=== PATIENT | male | born 1935 | race Caucasian/White ===

== ENCOUNTER → 2020-01-23 | Day surgery (SDC) | payer MEDICARE ==
[2020-01-20 09:30] LABS: BASOPHILS % 0.6 % (0.0-1.0); EOSINOPHILS # (AUTO) 0.2 (0.0-0.4); EOSINOPHILS % 2.4 % (0.0-6.0); HEMOGLOBIN 12.8 g/dL (14.0-18.0); LYMPHOCYTES # (AUTO) 1.2 (1.0-3.2); MEAN CORPUSCULAR HEMOGLOBIN 31.5 pg (28-32); MEAN CORPUSCULAR HGB CONC 34.6 g/dL (31-35); MEAN CORPUSCULAR VOLUME 91.1 fL (81-99); MONOCYTES # (AUTO) 0.5 (0.2-0.8); MONOCYTES % 7.5 % (4.4-11.3); NEUTROPHILS # (AUTO) 5.3 (2.1-6.9); NEUTROPHILS % 72.9 % (38.7-80.0); PLATELET COUNT 189 x10e3/uL (140-360); RED BLOOD COUNT 4.06 x10e6/uL (4.3-5.7); RED CELL DISTRIBUTION WIDTH 12.7 % (11.7-14.4)
[2020-01-20 09:56] LABS: ANION GAP 11.1 mmol/L (8-16); BLOOD UREA NITROGEN 27 mg/dL (7-26); BUN/CREATININE RATIO 24 (6-25); CALCIUM 9.6 mg/dL (8.4-10.2); CARBON DIOXIDE 26 mmol/L (22-29); CHLORIDE 104 mmol/L (98-107); CREATININE, SERUM 1.14 mg/dL (0.72-1.25); EST GLOMERULAR FILTRATION RATE > 60 ML/MIN (60-); GLUCOSE 149 mg/dL (74-118); POTASSIUM 4.1 mmol/L (3.5-5.1); SODIUM 137 mmol/L (136-145)
[~2020-01-23] MED LIST: AMLODIPINE BESY10 MG PO; ASPIRIN81 MG PO; B&O 60MG R/S 60 MG SUPP PR ONE; CEFTRIAXONE SOD 1 GM/NS 50 ML 50 ML IV ONE; CITRACAL + BON1 EACH PO; FINASTERIDE5 MG PO; FLOMAX0.4 MG PO; FUROSEMIDE40 MG PO; GLIMEPIRIDE2 MG PO; GLYCOPYRROLATE INJ 0.2 MG/ML VIAL ONE; HYDRALAZINE HCL25 MG PO; HYDROCHLOROTHIA25 MG PO; IOPAMIDOL 300MG/ML 50ML INFUS..BTL IV ONE; LIDOCAINE HCL 2% LOCAL INJ 5 ML SDV VIAL INJ ONE; LIPITOR10 MG PO; LOSARTAN POTASS25 MG PO; LUPRON DEPOT45 MG INJ; METOPROLOL SUCC25 MG PO; MYRBETRIQ25 MG PO; OLMESARTAN PO; OMEPRAZOLE40 MG PO; ONDANSETRON HCL INJ 2MG/ML 2ML 2 MG/ML VIAL ONE; OZEMPIC0.25 MG/0. SC; PANTOPRAZOLE SO40 MG PO; PLAVIX75 MG PO; PROPOFOL IV EMULSION 10 MG/ML 20 ML VIAL ONE; RENA-VITE TABL0.8 MG PO; SEVOFLURANE INHAL SOLN 250 ML PEN BTL ONE; TRADJENTA5 MG PO; TRICOR145 MG PO; VIT B12 PO; VIT D PO
[2020-01-23] MEDS: GENTAMICIN 80MG/NS 100 ML 200 ML IV ONE (12:38)
[2020-01-23 15:25] VITALS: BP 168/79
== END | disposition home or self-care (01) ==
LOC: OR 10:49
PROVIDERS: ATTEND Urology
DX: N40.1 Benign prostatic hyperplasia with lower urinary tract symptoms (principal); C61 Malignant neoplasm of prostate; N13.8 Other obstructive and reflux uropathy; R39.14 Feeling of incomplete bladder emptying; Z79.890 Hormone replacement therapy; N32.89 Other specified disorders of bladder; I25.10 Atherosclerotic heart disease of native coronary artery without angina pectoris; I25.2 Old myocardial infarction; E11.9 Type 2 diabetes mellitus without complications; I10 Essential (primary) hypertension; R81 Glycosuria; E66.9 Obesity, unspecified; Z01.810 Encounter for preprocedural cardiovascular examination; Z01.812 Encounter for preprocedural laboratory examination; Z01.818 Encounter for other preprocedural examination; Z20.828 Contact with and (suspected) exposure to other viral communicable diseases; Z79.02 Long term (current) use of antithrombotics/antiplatelets; Z79.82 Long term (current) use of aspirin; Z79.84 Long term (current) use of oral hypoglycemic drugs; Z86.73 Personal history of transient ischemic attack (TIA), and cerebral infarction without residual deficits
CPT/HCPCS: 52005; C9740; 36415; 71046; 74420; 80048; 82948; 85025; 93005; J0696; J1580; J2001; J2405; L8699; U0002

== ENCOUNTER → 2020-12-24 | Day surgery (SDC) | payer MEDICARE, OTHER ==
[2020-12-15 09:54] LABS: BASOPHILS # (AUTO) 0.1 (0.0-0.1); BASOPHILS % 1.1 % (0.0-1.0); EOSINOPHILS # (AUTO) 0.2 (0.0-0.4); EOSINOPHILS % 3.1 % (0.0-6.0); HEMATOCRIT 36.9 % (38.2-49.6); HEMOGLOBIN 12.5 g/dL (14.0-18.0); LYMPHOCYTES # (AUTO) 1.2 (1.0-3.2); LYMPHOCYTES % 15.7 % (18.0-39.1); MEAN CORPUSCULAR HEMOGLOBIN 30.5 pg (28-32); MEAN CORPUSCULAR HGB CONC 33.9 g/dL (31-35); MONOCYTES # (AUTO) 0.5 (0.2-0.8); MONOCYTES % 6.6 % (4.4-11.3); NEUTROPHILS # (AUTO) 5.7 (2.1-6.9); NEUTROPHILS % 72.9 % (38.7-80.0); PLATELET COUNT 214 x10e3/uL (140-360); RED CELL DISTRIBUTION WIDTH 12.5 % (11.7-14.4)
[2020-12-15 10:07] LABS: INR 0.97; PROTHROMBIN TIME 13.3 seconds (11.9-14.5)
[2020-12-15 10:08] LABS: PARTIAL THROMBOPLASTIN TIME 26.2 seconds (23.8-35.5)
[2020-12-15 10:12] LABS: CALCIUM 9.3 mg/dL (8.4-10.2); CREATININE, SERUM 1.27 mg/dL (0.72-1.25)
[~2020-12-24] MED LIST changes: -B&O 60MG R/S 60 MG SUPP PR ONE; +BELLADONNA/OPIUM 30 MG SUPP RC ONE; +BOTULINUM TOXIN TYPE A 100 UNIT VIAL IM ONE; +CEFTRIAXONE 1 GM VIAL ONE; -CEFTRIAXONE SOD 1 GM/NS 50 ML 50 ML IV ONE; -GLYCOPYRROLATE INJ 0.2 MG/ML VIAL ONE; -LIDOCAINE HCL 2% LOCAL INJ 5 ML SDV VIAL INJ ONE; -ONDANSETRON HCL INJ 2MG/ML 2ML 2 MG/ML VIAL ONE; -PROPOFOL IV EMULSION 10 MG/ML 20 ML VIAL ONE; -SEVOFLURANE INHAL SOLN 250 ML PEN BTL ONE; +SODIUM CHLORIDE 0.9% 50ML 50 ML ONE
[2020-12-24 09:25] VITALS: BP 131/75
== END | disposition home or self-care (01) ==
LOC: OR 08:00
PROVIDERS: ATTEND Urology
DX: N32.81 Overactive bladder (principal); C61 Malignant neoplasm of prostate; N40.0 Benign prostatic hyperplasia without lower urinary tract symptoms; E11.22 Type 2 diabetes mellitus with diabetic chronic kidney disease; I12.9 Hypertensive chronic kidney disease with stage 1 through stage 4 chronic kidney disease, or unspecified chronic kidney disease; N18.9 Chronic kidney disease, unspecified; N32.89 Other specified disorders of bladder; I49.3 Ventricular premature depolarization; I10 Essential (primary) hypertension; I25.810 Atherosclerosis of coronary artery bypass graft(s) without angina pectoris; Z01.810 Encounter for preprocedural cardiovascular examination; Z01.812 Encounter for preprocedural laboratory examination; Z01.818 Encounter for other preprocedural examination; Z20.822 Contact with and (suspected) exposure to COVID-19; Z79.02 Long term (current) use of antithrombotics/antiplatelets; Z79.82 Long term (current) use of aspirin; Z79.84 Long term (current) use of oral hypoglycemic drugs; Z79.890 Hormone replacement therapy; Z86.73 Personal history of transient ischemic attack (TIA), and cerebral infarction without residual deficits; Z95.1 Presence of aortocoronary bypass graft
CPT/HCPCS: 36415 ×2; 52005; 52287; 71046; 74420; 80048; 82948; 85025; 85610; 85730; 93005; C1758; J0587; J0696; Q9967; U0002 ×2

== ENCOUNTER → 2021-03-30 | Day surgery (SDC) | payer MEDICARE ==
[2021-03-29 09:19] LABS: BASOPHILS # (AUTO) 0.1 (0.0-0.1); BASOPHILS % 0.9 % (0.0-1.0); EOSINOPHILS # (AUTO) 0.2 (0.0-0.4); EOSINOPHILS % 2.5 % (0.0-6.0); HEMATOCRIT 38.5 % (38.2-49.6); HEMOGLOBIN 12.6 g/dL (14.0-18.0); LYMPHOCYTES # (AUTO) 1.2 (1.0-3.2); LYMPHOCYTES % 17.6 % (18.0-39.1); MEAN CORPUSCULAR HEMOGLOBIN 30.3 pg (28-32); MEAN CORPUSCULAR HGB CONC 32.7 g/dL (31-35); MEAN CORPUSCULAR VOLUME 92.5 fL (81-99); MONOCYTES # (AUTO) 0.5 (0.2-0.8); MONOCYTES % 6.7 % (4.4-11.3); PLATELET COUNT 185 x10e3/uL (140-360); RED BLOOD COUNT 4.16 x10e6/uL (4.3-5.7); RED CELL DISTRIBUTION WIDTH 12.6 % (11.7-14.4)
[2021-03-29 09:36] LABS: ANION GAP 14.1 mmol/L (8-16); CALCIUM 9.9 mg/dL (8.4-10.2); CREATININE, SERUM 1.15 mg/dL (0.72-1.25); POTASSIUM 4.1 mmol/L (3.5-5.1)
[~2021-03-30] MED LIST changes: +DEXAMETHASONE SOD PHOS INJ 4 MG/ML SDV ONE; +EPHEDRINE SULFATE INJ 50 MG/ML VIAL ONE; +FENTANYL CITRATE/PF 100MCG/2 ML INJ ONE; +GLYCOPYRROLATE INJ 0.2 MG/ML VIAL ONE; +LIDOCAINE HCL 2% LOCAL INJ 5 ML SDV VIAL INJ ONE; +ONDANSETRON HCL INJ 2MG/ML 2ML 2 MG/ML VIAL ONE; +POVIDONE IODINE 0.05% 0.05 % ML PO ONE; +PROPOFOL IV EMULSION 10 MG/ML 20 ML VIAL ONE; +SEVOFLURANE INHAL SOLN 250 ML PEN BTL ONE
[2021-03-30 10:28] VITALS: BP 152/78
== END | disposition home or self-care (01) ==
LOC: OR 07:03
PROVIDERS: ATTEND Urology
DX: N39.41 Urge incontinence (principal); N32.81 Overactive bladder; C61 Malignant neoplasm of prostate; N40.1 Benign prostatic hyperplasia with lower urinary tract symptoms; N13.8 Other obstructive and reflux uropathy; R39.14 Feeling of incomplete bladder emptying; N32.89 Other specified disorders of bladder; Q62.8 Other congenital malformations of ureter; E11.22 Type 2 diabetes mellitus with diabetic chronic kidney disease; I12.9 Hypertensive chronic kidney disease with stage 1 through stage 4 chronic kidney disease, or unspecified chronic kidney disease; N18.9 Chronic kidney disease, unspecified; I49.3 Ventricular premature depolarization; I45.10 Unspecified right bundle-branch block; I25.810 Atherosclerosis of coronary artery bypass graft(s) without angina pectoris; I25.2 Old myocardial infarction; Z01.810 Encounter for preprocedural cardiovascular examination; Z01.812 Encounter for preprocedural laboratory examination; Z20.822 Contact with and (suspected) exposure to COVID-19; Z79.02 Long term (current) use of antithrombotics/antiplatelets; Z79.82 Long term (current) use of aspirin; Z79.899 Other long term (current) drug therapy; Z86.73 Personal history of transient ischemic attack (TIA), and cerebral infarction without residual deficits; Z95.1 Presence of aortocoronary bypass graft
CPT/HCPCS: 36415 ×2; 52005; 52287; 74420; 80048; 82948; 85025; 93005; C1758; J0587; J0696; J1100; J2001; J2405; J2704; J3010; Q9967; U0002

== ENCOUNTER 2021-09-14 09:15 | Inpatient (IN) | payer MEDICARE ==
[2021-09-12 11:58] LABS: BASOPHILS # (AUTO) 0.1 (0.0-0.1); EOSINOPHILS # (AUTO) 0.1 (0.0-0.4); EOSINOPHILS % 1.5 % (0.0-6.0); HEMATOCRIT 38.2 % (38.2-49.6); HEMOGLOBIN 12.1 g/dL (14.0-18.0); LYMPHOCYTES % 13.8 % (18.0-39.1); MEAN CORPUSCULAR HEMOGLOBIN 29.6 pg (28-32); MEAN CORPUSCULAR HGB CONC 31.7 g/dL (31-35); MEAN CORPUSCULAR VOLUME 93.4 fL (81-99); MONOCYTES # (AUTO) 0.6 (0.2-0.8); MONOCYTES % 8.3 % (4.4-11.3); NEUTROPHILS # (AUTO) 5.4 (2.1-6.9); NEUTROPHILS % 74.8 % (38.7-80.0); PLATELET COUNT 262 x10e3/uL (140-360); RED BLOOD COUNT 4.09 x10e6/uL (4.3-5.7); RED CELL DISTRIBUTION WIDTH 13.2 % (11.7-14.4)
[2021-09-12 12:11] LABS: INR 0.91; PARTIAL THROMBOPLASTIN TIME 25.8 seconds (23.8-35.5); PROTHROMBIN TIME 13.1 seconds (11.9-14.5)
[2021-09-12 12:19] LABS: CALCIUM 9.3 mg/dL (8.4-10.2); CREATININE, SERUM 0.96 mg/dL (0.72-1.25)
[~2021-09-14] VITALS: Ht 185.4 cm; Wt 86.2 kg
[~2021-09-14 09:15] MED LIST changes: +AMITIZA8 MCG PO; -BELLADONNA/OPIUM 30 MG SUPP RC ONE; -BOTULINUM TOXIN TYPE A 100 UNIT VIAL IM ONE; -CEFTRIAXONE 1 GM VIAL ONE; -DEXAMETHASONE SOD PHOS INJ 4 MG/ML SDV ONE; -EPHEDRINE SULFATE INJ 50 MG/ML VIAL ONE; -FENTANYL CITRATE/PF 100MCG/2 ML INJ ONE; -GLYCOPYRROLATE INJ 0.2 MG/ML VIAL ONE; -IOPAMIDOL 300MG/ML 50ML INFUS..BTL IV ONE; -LIDOCAINE HCL 2% LOCAL INJ 5 ML SDV VIAL INJ ONE; +NEURONTIN100 MG PO; -ONDANSETRON HCL INJ 2MG/ML 2ML 2 MG/ML VIAL ONE; -POVIDONE IODINE 0.05% 0.05 % ML PO ONE; -PROPOFOL IV EMULSION 10 MG/ML 20 ML VIAL ONE; -SEVOFLURANE INHAL SOLN 250 ML PEN BTL ONE; -SODIUM CHLORIDE 0.9% 50ML 50 ML ONE; +VITAMIN D350 MCG PO
[2021-09-14] MEDS ORDERED: SODIUM CHLORIDE 0.9% 1000ML 1,000 ML ONE (09:55)
[2021-09-14] MEDS ORDERED: GENTAMICIN 80MG/NS 100 ML 200 ML IV ONE (09:55)
[2021-09-14] MEDS ORDERED: Ampicillin INJ 1 GM Vial ONE (09:55)
[2021-09-14] MEDS ORDERED: B&O 60MG R/S 60 MG SUPP PR ONE (12:13)
[2021-09-14] MEDS ORDERED: IOPAMIDOL 610MG/1ML 300 MG/ML VIAL IV ONE (12:13)
[2021-09-14] MEDS ORDERED: ONDANSETRON HCL INJ 2MG/ML 2ML 2 MG/ML VIAL IV PRN (12:15)
[2021-09-14] MEDS ORDERED: PHENAZOPYRIDINE HCL 100 MG TAB PO PRN (12:15)
[2021-09-14] MEDS ORDERED: B&O 60MG R/S 60 MG SUPP PR PRN (12:15)
[2021-09-14] MEDS ORDERED: DIPHENHYDRAMINE HCL 25 MG CAP PO PRN (12:15)
[2021-09-14] MEDS ORDERED: SODIUM CHLORIDE 0.9% 1000ML 1,000 ML IV SCH (12:15)
[2021-09-14] MEDS ORDERED: FENTANYL CITRATE/PF 100MCG/2 ML INJ ONE ×3 (13:35→15:30)
[2021-09-14 14:08] LABS: BASOPHILS % 0.4 % (0.0-1.0); EOSINOPHILS # (AUTO) 0.1 (0.0-0.4); EOSINOPHILS % 1.2 % (0.0-6.0); HEMATOCRIT 36.1 % (38.2-49.6); HEMOGLOBIN 11.8 g/dL (14.0-18.0); LYMPHOCYTES # (AUTO) 0.8 (1.0-3.2); LYMPHOCYTES % 11.9 % (18.0-39.1); MEAN CORPUSCULAR HEMOGLOBIN 29.6 pg (28-32); MEAN CORPUSCULAR HGB CONC 32.7 g/dL (31-35); MEAN CORPUSCULAR VOLUME 90.7 fL (81-99); MONOCYTES # (AUTO) 0.2 (0.2-0.8); MONOCYTES % 3.3 % (4.4-11.3); NEUTROPHILS # (AUTO) 5.7 (2.1-6.9); NEUTROPHILS % 82.6 % (38.7-80.0); PLATELET COUNT 194 x10e3/uL (140-360); RED BLOOD COUNT 3.98 x10e6/uL (4.3-5.7); RED CELL DISTRIBUTION WIDTH 13.2 % (11.7-14.4)
[2021-09-14 14:25] LABS: ANION GAP 15.7 mmol/L (8-16); CALCIUM 8.4 mg/dL (8.4-10.2); CREATININE, SERUM 0.94 mg/dL (0.72-1.25); POTASSIUM 3.7 mmol/L (3.5-5.1)
[2021-09-14] MEDS ORDERED: ATROPINE SULFATE 1 MG/ML VIAL ONE (15:10)
[2021-09-14] MEDS ORDERED: LIDOCAINE HCL 2% LOCAL INJ 5 ML SDV VIAL INJ ONE (15:10)
[2021-09-14] MEDS ORDERED: SEVOFLURANE INHAL SOLN 250 ML PEN BTL ONE (15:10)
[2021-09-14] MEDS ORDERED: POVIDONE IODINE 0.05% 0.05 % ML PO ONE (15:10)
[2021-09-14] MEDS ORDERED: PROPOFOL IV EMULSION 10 MG/ML 20 ML VIAL ONE (15:10)
[2021-09-14] MEDS ORDERED: DEXAMETHASONE SOD PHOS INJ 4 MG/ML SDV ONE (15:10)
[2021-09-14] MEDS ORDERED: ONDANSETRON HCL INJ 2MG/ML 2ML 2 MG/ML VIAL ONE (15:10)
[2021-09-14 15:15] VITALS: BP 163/82
[2021-09-14] MEDS ORDERED: SODIUM CHLORIDE 0.9% 250ML 0 ML ONE (15:30)
[2021-09-14] MEDS ORDERED: MIDAZOLAM HCL 2 MG/2 ML VIAL ONE (15:30)
[2021-09-14 15:34] VITALS: BP 173/79
[2021-09-14] MEDS ORDERED: SODIUM CHLORIDE 0.9% 250ML 250 ML ONE ×2 (16:07→16:32)
[2021-09-14] MEDS ORDERED: IOPAMIDOL 370 MG/ML 100 ML INFUS..BTL INJ ONE (16:07)
[2021-09-14] MEDS: DOCUSATE SODIUM 100 MG CAP PO SCH (17:51)
[2021-09-14] MEDS: ACETAMINOPHEN 1000 MG/100 ML IV PRN (18:30)
[2021-09-14 20:00] VITALS: BP 161/73
[2021-09-14] MEDS ORDERED: NON-FORMULARY MEDICATION (Semaglutide (Ozempic) 0.25 MG) SC SCH (20:45)
[2021-09-14] MEDS: METOPROLOL SUCCINATE 25 MG TAB XL PO SCH (21:00)
[2021-09-14] MEDS: ATORVASTATIN 40 MG TAB PO SCH (21:19)
[2021-09-14] MEDS: GABAPENTIN 100 MG CAP PO SCH (21:20)
[2021-09-14] MEDS: HYDRALAZINE HCL 25 MG TAB PO SCH (21:20)
[2021-09-14] MEDS: OLMESARTAN 20 MG TAB PO SCH (21:20)
[2021-09-14] MEDS: LUBIPROSTONE 24 MCG CAP PO SCH (21:23)
[2021-09-14] MEDS: TAMSULOSIN HCL 0.4 MG CAP PO SCH (21:24)
[2021-09-14 21:30] VITALS: BP 161/73
[2021-09-14] MEDS ORDERED: DEXTROSE 50% SYRINGE 50 ML IV PRN (22:45)
[2021-09-14] MEDS: AMLODIPINE BESYLATE 10 MG TAB PO SCH (22:45)
[2021-09-14] MEDS ORDERED: HYDRALAZINE HCL 20 MG/ML VIAL IV PRN (22:45)
[2021-09-14] MEDS ORDERED: INSULIN GLARGINE 100 UNITS/ML VIAL SQ ONE (23:00)
[2021-09-14] MEDS: SODIUM CHLORIDE 0.45% 1,000 ML IV SCH (23:49)
[2021-09-14] MEDS: ACETAMINOPHEN/CODEINE 300MG - 30MG TAB PO PRN (23:49)
[2021-09-15] VITALS (8 sets, daily range): BP systolic 132–167; BP diastolic 55–72
[2021-09-15] MEDS: ACETAMINOPHEN 1000 MG/100 ML IV PRN ×2 (05:18→14:11)
[2021-09-15 06:17] LABS: BASOPHILS # (AUTO) 0.1 (0.0-0.1); BASOPHILS % 0.4 % (0.0-1.0); EOSINOPHILS % 0.3 % (0.0-6.0); HEMATOCRIT 37.7 % (38.2-49.6); HEMOGLOBIN 12.7 g/dL (14.0-18.0); LYMPHOCYTES # (AUTO) 1.4 (1.0-3.2); LYMPHOCYTES % 10.2 % (18.0-39.1); MEAN CORPUSCULAR HGB CONC 33.7 g/dL (31-35); MEAN CORPUSCULAR VOLUME 89.1 fL (81-99); MONOCYTES % 7.5 % (4.4-11.3); NEUTROPHILS # (AUTO) 11.1 (2.1-6.9); PLATELET COUNT 254 x10e3/uL (140-360); RED BLOOD COUNT 4.23 x10e6/uL (4.3-5.7); RED CELL DISTRIBUTION WIDTH 13.3 % (11.7-14.4)
[2021-09-15 07:02] LABS: ANION GAP 14.6 mmol/L (8-16); CALCIUM 8.5 mg/dL (8.4-10.2); CREATININE, SERUM 1.43 mg/dL (0.72-1.25); POTASSIUM 3.6 mmol/L (3.5-5.1)
[2021-09-15] MEDS: INSULIN LISPRO 100 UNIT/1 ML 3ML VIAL SQ SCH ×4 (07:30→21:00)
[2021-09-15] MEDS: SODIUM CHLORIDE 0.45% 1,000 ML IV SCH ×2 (08:55→17:50)
[2021-09-15] MEDS ORDERED: NON-FORMULARY MEDICATION (Linagliptin (Tradjenta) 5 MG) PO SCH (09:00)
[2021-09-15] MEDS: GLIMEPIRIDE 2 MG TAB PO SCH ×2 (09:00→17:49)
[2021-09-15] MEDS: FENOFIBRATE 160 MG TAB PO SCH (09:00)
[2021-09-15] MEDS: PANTOPRAZOLE SOD 40 MG TABEC PO SCH (09:00)
[2021-09-15] MEDS: DOCUSATE SODIUM 100 MG CAP PO SCH ×2 (09:00→17:49)
[2021-09-15] MEDS ORDERED: FUROSEMIDE 20 MG TAB PO SCH (09:00)
[2021-09-15] MEDS: LUBIPROSTONE 24 MCG CAP PO SCH ×2 (09:00→17:49)
[2021-09-15] MEDS: TAMSULOSIN HCL 0.4 MG CAP PO SCH ×2 (09:00→17:49)
[2021-09-15] MEDS ORDERED: AMLODIPINE BESYLATE 10 MG TAB PO SCH (09:00)
[2021-09-15] MEDS: FOLIC ACID/CYANOCOB/PYRIDOXINE TAB PO SCH (09:00)
[2021-09-15] MEDS: GABAPENTIN 100 MG CAP PO SCH ×3 (09:00→21:35)
[2021-09-15] MEDS: METOPROLOL SUCCINATE 25 MG TAB XL PO SCH ×2 (09:23→17:49)
[2021-09-15] MEDS: HYDRALAZINE HCL 25 MG TAB PO SCH ×3 (09:23→21:35)
[2021-09-15] MEDS: FINASTERIDE 5 MG TAB PO SCH (09:24)
[2021-09-15] MEDS: AMLODIPINE BESYLATE 10 MG TAB PO SCH (09:25)
[2021-09-15] MEDS: ACETAMINOPHEN/CODEINE 300MG - 30MG TAB PO PRN ×3 (10:53→19:22)
[2021-09-15] MEDS ORDERED: FENTANYL CITRATE/PF 100MCG/2 ML INJ ONE (12:49)
[2021-09-15] MEDS ORDERED: SODIUM CHLORIDE 0.9% 250ML 250 ML ONE ×2 (12:49→13:12)
[2021-09-15] MEDS ORDERED: MIDAZOLAM HCL 2 MG/2 ML VIAL ONE (12:49)
[2021-09-15] MEDS ORDERED: IOPAMIDOL 300MG/ML 100 ML INFUS..BTL IV ONE (13:12)
[2021-09-15] MEDS ORDERED: LIDOCAINE HCL 1% LOCAL INJ 20 ML VIAL ONE (15:33)
[2021-09-15] MEDS: ATORVASTATIN 40 MG TAB PO SCH (21:35)
[2021-09-15] MEDS: OLMESARTAN 20 MG TAB PO SCH (21:35)
[2021-09-16] VITALS: BP 145/86
[2021-09-16 04:00] VITALS: BP 133/62
[2021-09-16] MEDS: SODIUM CHLORIDE 0.45% 1,000 ML IV SCH (05:07)
[2021-09-16 05:22] LABS: BASOPHILS # (AUTO) 0.1 (0.0-0.1); BASOPHILS % 0.6 % (0.0-1.0); EOSINOPHILS # (AUTO) 0.1 (0.0-0.4); EOSINOPHILS % 1.2 % (0.0-6.0); HEMATOCRIT 34.9 % (38.2-49.6); HEMOGLOBIN 11.8 g/dL (14.0-18.0); LYMPHOCYTES % 10.1 % (18.0-39.1); MEAN CORPUSCULAR HEMOGLOBIN 29.8 pg (28-32); MEAN CORPUSCULAR HGB CONC 33.8 g/dL (31-35); MEAN CORPUSCULAR VOLUME 88.1 fL (81-99); MONOCYTES # (AUTO) 0.7 (0.2-0.8); MONOCYTES % 7.1 % (4.4-11.3); NEUTROPHILS # (AUTO) 8.2 (2.1-6.9); NEUTROPHILS % 80.7 % (38.7-80.0); PLATELET COUNT 205 x10e3/uL (140-360); RED BLOOD COUNT 3.96 x10e6/uL (4.3-5.7); RED CELL DISTRIBUTION WIDTH 13.3 % (11.7-14.4)
[2021-09-16 05:47] LABS: ANION GAP 10.2 mmol/L (8-16); CREATININE, SERUM 1.09 mg/dL (0.72-1.25); POTASSIUM 3.2 mmol/L (3.5-5.1)
[2021-09-16 07:51] VITALS: BP 151/61
[2021-09-16 08:18] VITALS: BP 151/61
[2021-09-16] MEDS: TAMSULOSIN HCL 0.4 MG CAP PO SCH ×2 (08:23→17:06)
[2021-09-16] MEDS: GLIMEPIRIDE 2 MG TAB PO SCH (08:24)
[2021-09-16] MEDS: LUBIPROSTONE 24 MCG CAP PO SCH ×2 (08:24→17:06)
[2021-09-16] MEDS: FOLIC ACID/CYANOCOB/PYRIDOXINE TAB PO SCH (08:25)
[2021-09-16] MEDS: HYDRALAZINE HCL 25 MG TAB PO SCH ×2 (08:25→17:07)
[2021-09-16] MEDS: AMLODIPINE BESYLATE 10 MG TAB PO SCH (08:25)
[2021-09-16] MEDS: GABAPENTIN 100 MG CAP PO SCH ×2 (08:25→17:06)
[2021-09-16] MEDS: DOCUSATE SODIUM 100 MG CAP PO SCH ×2 (08:25→17:06)
[2021-09-16] MEDS: PANTOPRAZOLE SOD 40 MG TABEC PO SCH (08:25)
[2021-09-16] MEDS: FINASTERIDE 5 MG TAB PO SCH (08:26)
[2021-09-16] MEDS: METOPROLOL SUCCINATE 25 MG TAB XL PO SCH ×2 (08:26→17:07)
[2021-09-16] MEDS: FENOFIBRATE 160 MG TAB PO SCH (08:30)
[2021-09-16] MEDS: INSULIN LISPRO 100 UNIT/1 ML 3ML VIAL SQ SCH ×3 (08:30→17:08)
[2021-09-16] MEDS ORDERED: POTASSIUM CHLORIDE 10MEQ EA PO ONE (11:00)
[2021-09-16 11:52] VITALS: BP 148/59
[2021-09-16 15:35] VITALS: BP 156/63
[2021-09-16] MEDS ORDERED: GLIMEPIRIDE 2 MG TAB PO SCH (17:00)
[2021-09-16] MEDS ORDERED: PENICILLIN V P500 MG PO (17:43)
[2021-09-16] MEDS ORDERED: tylenol #3 PO (17:44)
== END 2021-09-16 18:03 | disposition home or self-care (01) | DRG 713 ==
LOC: OR 09:15 → PACU V 12:16 → MED/SURG 15:07
PROVIDERS: ADMIT Internal Medicine; ATTEND Internal Medicine
PROC: BT1D1ZZ Fluoroscopy of Right Kidney, Ureter and Bladder using Low Osmolar Contrast (ICD-10-PCS; 2021-09-14)
PROC: 0T768ZZ Dilation of Right Ureter, Via Natural or Artificial Opening Endoscopic (ICD-10-PCS; principal; 2021-09-14 12:08)
PROC: 0V508ZZ Destruction of Prostate, Via Natural or Artificial Opening Endoscopic (ICD-10-PCS; 2021-09-14 12:08)
DX: N40.1 Benign prostatic hyperplasia with lower urinary tract symptoms (principal); N39.0 Urinary tract infection, site not specified; R39.15 Urgency of urination; R35.0 Frequency of micturition; I25.10 Atherosclerotic heart disease of native coronary artery without angina pectoris; Z86.73 Personal history of transient ischemic attack (TIA), and cerebral infarction without residual deficits; Z95.1 Presence of aortocoronary bypass graft; I25.2 Old myocardial infarction; C61 Malignant neoplasm of prostate; E29.1 Testicular hypofunction; G47.33 Obstructive sleep apnea (adult) (pediatric); I12.9 Hypertensive chronic kidney disease with stage 1 through stage 4 chronic kidney disease, or unspecified chronic kidney disease; E11.22 Type 2 diabetes mellitus with diabetic chronic kidney disease; N18.9 Chronic kidney disease, unspecified; E11.69 Type 2 diabetes mellitus with other specified complication; E78.5 Hyperlipidemia, unspecified
CPT/HCPCS: 0223U; 36415; 50430; 50433; 74178; 74420; 74470; 76942; 80048; 82948; 83735; 84152; 85025; 85610; 85730; 88304; 88307; 88342; 93005; 94799; C1758; C1769; J0461; J0696; J1100; J1580; J1815; J2001; J2250; J2405; J3010; J7030; J7050; Q9967

== ENCOUNTER 2021-09-19 11:55 | Inpatient (IN) | payer MEDICARE ==
[~2021-09-19] VITALS: Ht 185.4 cm; Wt 86.2 kg
[~2021-09-19 11:55] MED LIST changes: +PENICILLIN V P500 MG PO; +tylenol #3 PO
[2021-09-19] MEDS ORDERED: SODIUM CHLORIDE 0.9% 500ML 500 ML IV ONE (12:30)
[2021-09-19 12:55] LABS: BASOPHILS # (AUTO) 0.1 (0.0-0.1); BASOPHILS % 0.7 % (0.0-1.0); EOSINOPHILS # (AUTO) 0.1 (0.0-0.4); EOSINOPHILS % 1.6 % (0.0-6.0); HEMATOCRIT 33.9 % (38.2-49.6); HEMOGLOBIN 11.2 g/dL (14.0-18.0); LYMPHOCYTES # (AUTO) 0.8 (1.0-3.2); LYMPHOCYTES % 10.9 % (18.0-39.1); MEAN CORPUSCULAR HEMOGLOBIN 29.2 pg (28-32); MEAN CORPUSCULAR VOLUME 88.3 fL (81-99); MONOCYTES # (AUTO) 0.5 (0.2-0.8); MONOCYTES % 7.4 % (4.4-11.3); NEUTROPHILS # (AUTO) 5.8 (2.1-6.9); NEUTROPHILS % 78.9 % (38.7-80.0); PLATELET COUNT 232 x10e3/uL (140-360); RED BLOOD COUNT 3.84 x10e6/uL (4.3-5.7); RED CELL DISTRIBUTION WIDTH 13.1 % (11.7-14.4)
[2021-09-19 13:15] LABS: CLARITY,URINE TURBID (CLEAR)
[2021-09-19 13:16] LABS: KETONES,URINE NEGATIVE (NEGATIVE); LEUKOCYTE ESTERASE ,URINE LARGE (NEGATIVE); NITRITE,URINE NEGATIVE (NEGATIVE); PROTEIN,URINE DIPSTICK 2+ (NEGATIVE); URINE UROBILINOGEN 0.2 mg/dL (0.2 - 1)
[2021-09-19 13:22] LABS: ALBUMIN 3.1 g/dL (3.5-5.0); ALBUMIN/GLOBULIN RATIO 0.9 (0.8-2.0); ANION GAP 13.3 mmol/L (8-16); CALCIUM 8.7 mg/dL (8.4-10.2); CREATININE, SERUM 1.01 mg/dL (0.72-1.25); POTASSIUM 3.3 mmol/L (3.5-5.1)
[2021-09-19 13:42] LABS: WBC,URINE (MAN) 21-50 /HPF (0-5)
[2021-09-19 13:43] LABS: BACTERIA,URINE MANY /HPF; EPITHELIAL CELLS,URINE FEW /LPF
[2021-09-19 13:44] LABS: COLOR,URINE YELLOW (YELLOW)
[2021-09-19] MEDS ORDERED: ONDANSETRON HCL INJ 2MG/ML 2ML 2 MG/ML VIAL IV PRN (13:45)
[2021-09-19] MEDS: SODIUM CHLORIDE 0.9% 1000ML 1,000 ML IV SCH (14:35)
[2021-09-19 15:58] VITALS: BP 143/60
[2021-09-19 16:00] VITALS: BP 179/76
[2021-09-19 20:00] VITALS: BP 179/76
[2021-09-19 21:23] VITALS: BP 173/64
[2021-09-19] MEDS ORDERED: ACETAMINOPHEN/CODEINE 300MG - 30MG TAB PO PRN (23:45)
[2021-09-20] VITALS: BP 156/67
[2021-09-20 04:00] VITALS: BP 124/80
[2021-09-20] MEDS: SODIUM CHLORIDE 0.9% 1000ML 1,000 ML IV SCH ×2 (04:23→09:31)
[2021-09-20 07:22] LABS: BASOPHILS # (AUTO) 0.1 (0.0-0.1); BASOPHILS % 0.6 % (0.0-1.0); EOSINOPHILS # (AUTO) 0.1 (0.0-0.4); EOSINOPHILS % 1.6 % (0.0-6.0); HEMATOCRIT 34.6 % (38.2-49.6); HEMOGLOBIN 11.6 g/dL (14.0-18.0); LYMPHOCYTES # (AUTO) 0.9 (1.0-3.2); LYMPHOCYTES % 10.6 % (18.0-39.1); MEAN CORPUSCULAR HEMOGLOBIN 29.7 pg (28-32); MEAN CORPUSCULAR HGB CONC 33.5 g/dL (31-35); MEAN CORPUSCULAR VOLUME 88.7 fL (81-99); MONOCYTES # (AUTO) 0.8 (0.2-0.8); MONOCYTES % 9.1 % (4.4-11.3); NEUTROPHILS # (AUTO) 6.4 (2.1-6.9); NEUTROPHILS % 77.5 % (38.7-80.0); PLATELET COUNT 228 x10e3/uL (140-360); RED CELL DISTRIBUTION WIDTH 13.1 % (11.7-14.4)
[2021-09-20 08:02] LABS: CALCIUM 8.3 mg/dL (8.4-10.2); CREATININE, SERUM 0.91 mg/dL (0.72-1.25)
[2021-09-20 09:00] VITALS: BP 133/81
[2021-09-20] MEDS ORDERED: PENICILLIN V POTASSIUM 500 MG TAB PO SCH (09:00)
[2021-09-20] MEDS ORDERED: FUROSEMIDE 40 MG TAB PO SCH (09:00)
[2021-09-20] MEDS ORDERED: GLIMEPIRIDE 2 MG TAB PO SCH (09:00)
[2021-09-20] MEDS: GABAPENTIN 100 MG CAP PO SCH ×3 (09:28→20:50)
[2021-09-20] MEDS: FOLIC ACID/CYANOCOB/PYRIDOXINE TAB PO SCH (09:28)
[2021-09-20] MEDS: FINASTERIDE 5 MG TAB PO SCH (09:29)
[2021-09-20] MEDS: TAMSULOSIN HCL 0.4 MG CAP PO SCH ×2 (09:29→17:34)
[2021-09-20] MEDS: AMLODIPINE BESYLATE 10 MG TAB PO SCH (09:30)
[2021-09-20] MEDS: PANTOPRAZOLE SOD 40 MG TABEC PO SCH (09:30)
[2021-09-20] MEDS: METOPROLOL SUCCINATE 25 MG TAB XL PO SCH ×2 (09:30→17:35)
[2021-09-20] MEDS: HYDRALAZINE HCL 25 MG TAB PO SCH ×3 (09:31→20:53)
[2021-09-20] MEDS: FENOFIBRATE 145 MG TAB PO SCH (09:32)
[2021-09-20] MEDS ORDERED: ONDANSETRON HCL INJ 2MG/ML 2ML 2 MG/ML VIAL IV PRN (09:45)
[2021-09-20] MEDS ORDERED: DEXTROSE 50% SYRINGE 50 ML IV PRN (09:45)
[2021-09-20] MEDS ORDERED: ACETAMINOPHEN 325 MG TAB PO PRN (09:45)
[2021-09-20] MEDS: SENNA-S TABLET PO SCH ×2 (11:22→17:00)
[2021-09-20] MEDS: INSULIN LISPRO 100 UNIT/1 ML 3ML VIAL SQ SCH ×3 (11:29→20:56)
[2021-09-20 13:42] VITALS: BP 145/63
[2021-09-20 17:05] VITALS: BP 122/50
[2021-09-20 19:55] VITALS: BP 130/57
[2021-09-20] MEDS: ATORVASTATIN 40 MG TAB PO SCH (20:49)
[2021-09-20] MEDS: HYDROCODONE/APAP 10MG-325MG TAB PO PRN (20:55)
[2021-09-20] MEDS ORDERED: FLUCONAZOLE 100 MG/NS 50 ML 50 ML IV SCH (23:00)
[2021-09-21] VITALS (7 sets, daily range): BP systolic 119–159; BP diastolic 55–67
[2021-09-21] MEDS: HYDROCODONE/APAP 10MG-325MG TAB PO PRN ×2 (00:59→21:48)
[2021-09-21] MEDS: SODIUM CHLORIDE 0.9% 1000ML 1,000 ML IV SCH ×3 (01:00→15:53)
[2021-09-21 06:43] LABS: BASOPHILS # (AUTO) 0.1 (0.0-0.1); BASOPHILS % 0.9 % (0.0-1.0); EOSINOPHILS # (AUTO) 0.3 (0.0-0.4); EOSINOPHILS % 4.1 % (0.0-6.0); HEMATOCRIT 31.2 % (38.2-49.6); HEMOGLOBIN 10.6 g/dL (14.0-18.0); LYMPHOCYTES # (AUTO) 1.2 (1.0-3.2); LYMPHOCYTES % 17.2 % (18.0-39.1); MEAN CORPUSCULAR HEMOGLOBIN 30.1 pg (28-32); MEAN CORPUSCULAR VOLUME 88.6 fL (81-99); MONOCYTES # (AUTO) 0.7 (0.2-0.8); MONOCYTES % 9.8 % (4.4-11.3); NEUTROPHILS # (AUTO) 4.8 (2.1-6.9); NEUTROPHILS % 67.4 % (38.7-80.0); PLATELET COUNT 221 x10e3/uL (140-360); RED BLOOD COUNT 3.52 x10e6/uL (4.3-5.7); RED CELL DISTRIBUTION WIDTH 12.9 % (11.7-14.4)
[2021-09-21 07:08] LABS: ANION GAP 9.6 mmol/L (8-16); CALCIUM 8.6 mg/dL (8.4-10.2); CREATININE, SERUM 0.95 mg/dL (0.72-1.25); POTASSIUM 3.6 mmol/L (3.5-5.1)
[2021-09-21] MEDS: PANTOPRAZOLE SOD 40 MG TABEC PO SCH (08:38)
[2021-09-21] MEDS: FOLIC ACID/CYANOCOB/PYRIDOXINE TAB PO SCH (08:41)
[2021-09-21] MEDS: HYDRALAZINE HCL 25 MG TAB PO SCH ×3 (08:41→21:00)
[2021-09-21] MEDS: TAMSULOSIN HCL 0.4 MG CAP PO SCH ×2 (08:41→21:41)
[2021-09-21] MEDS: GABAPENTIN 100 MG CAP PO SCH ×3 (08:42→21:00)
[2021-09-21] MEDS: AMLODIPINE BESYLATE 10 MG TAB PO SCH (08:43)
[2021-09-21] MEDS: FINASTERIDE 5 MG TAB PO SCH (08:43)
[2021-09-21] MEDS: SENNA-S TABLET PO SCH ×2 (08:44→21:00)
[2021-09-21] MEDS: METOPROLOL SUCCINATE 25 MG TAB XL PO SCH (08:44)
[2021-09-21] MEDS: FENOFIBRATE 145 MG TAB PO SCH (08:45)
[2021-09-21] MEDS: INSULIN LISPRO 100 UNIT/1 ML 3ML VIAL SQ SCH ×4 (08:52→21:00)
[2021-09-21] MEDS: FLUCONAZOLE 100 MG/NS 50 ML 50 ML IV SCH (08:55)
[2021-09-21] MEDS: ATORVASTATIN 40 MG TAB PO SCH (21:00)
[2021-09-21] MEDS: METOPROLOL SUCCINATE 50 MG TAB XL PO SCH (21:00)
[2021-09-22] VITALS (7 sets, daily range): BP systolic 119–169; BP diastolic 61–74
[2021-09-22] MEDS: SODIUM CHLORIDE 0.9% 1000ML 1,000 ML IV SCH (01:45)
[2021-09-22] MEDS: FLUCONAZOLE 100 MG/NS 50 ML 50 ML IV SCH (09:34)
[2021-09-22] MEDS: FOLIC ACID/CYANOCOB/PYRIDOXINE TAB PO SCH (09:34)
[2021-09-22] MEDS: SENNA-S TABLET PO SCH ×2 (09:34→21:00)
[2021-09-22] MEDS: FINASTERIDE 5 MG TAB PO SCH (09:34)
[2021-09-22] MEDS: GABAPENTIN 100 MG CAP PO SCH ×3 (09:35→21:00)
[2021-09-22] MEDS: PANTOPRAZOLE SOD 40 MG TABEC PO SCH (09:35)
[2021-09-22] MEDS: HYDRALAZINE HCL 25 MG TAB PO SCH ×3 (09:35→21:00)
[2021-09-22] MEDS: FENOFIBRATE 145 MG TAB PO SCH (09:35)
[2021-09-22] MEDS: AMLODIPINE BESYLATE 10 MG TAB PO SCH (09:36)
[2021-09-22] MEDS: METOPROLOL SUCCINATE 50 MG TAB XL PO SCH ×2 (09:36→21:00)
[2021-09-22] MEDS: TAMSULOSIN HCL 0.4 MG CAP PO SCH ×2 (09:40→21:00)
[2021-09-22] MEDS: INSULIN LISPRO 100 UNIT/1 ML 3ML VIAL SQ SCH ×4 (09:51→21:00)
[2021-09-22] MEDS ORDERED: ONDANSETRON HCL 4 MG ORAL DISINTEGRATING TAB PO PRN (11:45)
[2021-09-22] MEDS: OLMESARTAN 20 MG TAB PO SCH (14:11)
[2021-09-22] MEDS: ATORVASTATIN 40 MG TAB PO SCH (21:00)
[2021-09-22] MEDS: HYDROCODONE/APAP 10MG-325MG TAB PO PRN (22:25)
[2021-09-23] VITALS: BP 125/62
[2021-09-23 04:00] VITALS: BP 127/72
[2021-09-23 08:01] VITALS: BP 143/78
[2021-09-23 09:37] VITALS: BP 143/78
[2021-09-23] MEDS: GABAPENTIN 100 MG CAP PO SCH (11:11)
[2021-09-23] MEDS: FOLIC ACID/CYANOCOB/PYRIDOXINE TAB PO SCH (11:11)
[2021-09-23] MEDS: FLUCONAZOLE 100 MG/NS 50 ML 50 ML IV SCH (11:11)
[2021-09-23] MEDS: SENNA-S TABLET PO SCH (11:12)
[2021-09-23] MEDS: FINASTERIDE 5 MG TAB PO SCH (11:12)
[2021-09-23] MEDS: OLMESARTAN 20 MG TAB PO SCH (11:12)
[2021-09-23] MEDS: TAMSULOSIN HCL 0.4 MG CAP PO SCH (11:13)
[2021-09-23] MEDS: PANTOPRAZOLE SOD 40 MG TABEC PO SCH (11:13)
[2021-09-23] MEDS: METOPROLOL SUCCINATE 50 MG TAB XL PO SCH (11:13)
[2021-09-23] MEDS: HYDRALAZINE HCL 25 MG TAB PO SCH (11:14)
[2021-09-23] MEDS: AMLODIPINE BESYLATE 10 MG TAB PO SCH (11:15)
[2021-09-23] MEDS: FENOFIBRATE 145 MG TAB PO SCH (11:15)
[2021-09-23] MEDS: INSULIN LISPRO 100 UNIT/1 ML 3ML VIAL SQ SCH ×2 (11:30→11:48)
[2021-09-23 12:11] VITALS: BP 143/69
[2021-09-24] MEDS ORDERED: FLUCONAZOLE 100 MG TAB PO SCH (09:00)
== END 2021-09-23 13:56 | disposition home or self-care (01) | DRG 699 ==
LOC: ER 12:00 → INTOOBSV 13:42 → ERHOLD 13:42 → MED/SURG2 15:38 → OBSVTOIN 09-21 10:51
PROVIDERS: ADMIT Internal Medicine; ATTEND Internal Medicine
DX: T83.511A Infection and inflammatory reaction due to indwelling urethral catheter, initial encounter (principal); B37.49 Other urogenital candidiasis; C77.2 Secondary and unspecified malignant neoplasm of intra-abdominal lymph nodes; N02.9 Recurrent and persistent hematuria with unspecified morphologic changes; C61 Malignant neoplasm of prostate; I25.10 Atherosclerotic heart disease of native coronary artery without angina pectoris; F32.A Depression, unspecified; E86.0 Dehydration; R63.0 Anorexia; I10 Essential (primary) hypertension; E78.5 Hyperlipidemia, unspecified; I49.3 Ventricular premature depolarization; Z93.6 Other artificial openings of urinary tract status; Z68.25 Body mass index [BMI] 25.0-25.9, adult; Z95.1 Presence of aortocoronary bypass graft; Z20.822 Contact with and (suspected) exposure to COVID-19
CPT/HCPCS: 36415; 80048; 80053; 81001; 82948; 84484; 85025; 87086; 93005; 96372; 97139; 99251; 99284; G0378; J0692; J1450; J7030; J7040

== ENCOUNTER 2021-10-14 19:13 | Inpatient (IN) | payer MEDICARE ==
[~2021-10-14] VITALS: Ht 185.4 cm; Wt 83.0 kg
[2021-10-14] MEDS ORDERED: CEFTRIAXONE 1 GM VIAL IV SCH (19:45)
[2021-10-14] MEDS ORDERED: SODIUM CHLORIDE 0.9% 1000ML 1,000 ML IV ONE (19:45)
[2021-10-14] MEDS ORDERED: DILTIAZEM HCL 5 MG/ML 5 ML VIAL IV ONE ×2 (19:45→21:00)
[2021-10-14 19:52] LABS: BASOPHILS % 0.2 % (0.0-1.0); HEMATOCRIT 35.5 % (38.2-49.6); HEMOGLOBIN 11.9 g/dL (14.0-18.0); LYMPHOCYTES # (AUTO) 0.7 (1.0-3.2); LYMPHOCYTES % 3.7 % (18.0-39.1); MEAN CORPUSCULAR HEMOGLOBIN 29.7 pg (28-32); MEAN CORPUSCULAR HGB CONC 33.5 g/dL (31-35); MEAN CORPUSCULAR VOLUME 88.5 fL (81-99); MONOCYTES # (AUTO) 1.6 (0.2-0.8); MONOCYTES % 9.1 % (4.4-11.3); NEUTROPHILS # (AUTO) 15.5 (2.1-6.9); NEUTROPHILS % 86.3 % (38.7-80.0); PLATELET COUNT 182 x10e3/uL (140-360); RED BLOOD COUNT 4.01 x10e6/uL (4.3-5.7); RED CELL DISTRIBUTION WIDTH 13.6 % (11.7-14.4)
[2021-10-14 19:57] LABS: INR 1.05; PROTHROMBIN TIME 14.7 seconds (11.9-14.5)
[2021-10-14 20:06] LABS: ALBUMIN 3.5 g/dL (3.5-5.0); ALBUMIN/GLOBULIN RATIO 0.9 (0.8-2.0); ANION GAP 15.5 mmol/L (8-16); CALCIUM 9.1 mg/dL (8.4-10.2); CREATININE, SERUM 1.06 mg/dL (0.72-1.25); POTASSIUM 3.5 mmol/L (3.5-5.1)
[2021-10-14] MEDS ORDERED: ACETAMINOPHEN 325 MG TAB PO ONE (20:30)
[2021-10-14] MEDS ORDERED: DILTIAZEM HCL 125 ML IV STA (20:46)
[2021-10-14] MEDS ORDERED: MAGNESIUM SULFATE 2GM/50ML 50 ML IV ONE (21:30)
[2021-10-14] MEDS ORDERED: SODIUM CHLORIDE FLUSH 10 ML SYR INJ PRN (21:45)
[2021-10-14] MEDS ORDERED: ONDANSETRON HCL INJ 2MG/ML 2ML 2 MG/ML VIAL IV PRN (21:45)
[2021-10-14] MEDS ORDERED: ASPIRIN 81 MG CHEW TAB PO ONE (21:45)
[2021-10-15] VITALS (17 sets, daily range): BP systolic 125–154; BP diastolic 47–128
[2021-10-15] MEDS ORDERED: ACETAMINOPHEN 325 MG TAB PO PRN
[2021-10-15] MEDS ORDERED: DEXTROSE 50% SYRINGE 50 ML IV PRN
[2021-10-15] MEDS ORDERED: ACETAMINOPHEN/CODEINE 300MG - 30MG TAB PO PRN
[2021-10-15] MEDS ORDERED: ASPIRIN 81 MG CHEW TAB ONE (02:06)
[2021-10-15] MEDS ORDERED: MAGNESIUM SULFATE 2GM/50ML 50 ML IV ONE (02:06)
[2021-10-15 02:23] LABS: CLARITY,URINE CLOUDY (CLEAR); COLOR,URINE YELLOW (YELLOW); KETONES,URINE 1+ (NEGATIVE); LEUKOCYTE ESTERASE ,URINE LARGE (NEGATIVE); NITRITE,URINE POSITIVE (NEGATIVE); PROTEIN,URINE DIPSTICK 2+ (NEGATIVE); URINE UROBILINOGEN 0.2 mg/dL (0.2 - 1)
[2021-10-15 02:29] LABS: BACTERIA,URINE MODERATE /HPF; EPITHELIAL CELLS,URINE FEW /LPF; WBC,URINE (MAN) >50 /HPF (0-5)
[2021-10-15 06:44] LABS: BASOPHILS % 0.1 % (0.0-1.0); HEMOGLOBIN 11.4 g/dL (14.0-18.0); LYMPHOCYTES # (AUTO) 0.9 (1.0-3.2); LYMPHOCYTES % 5.6 % (18.0-39.1); MEAN CORPUSCULAR HEMOGLOBIN 29.5 pg (28-32); MEAN CORPUSCULAR HGB CONC 32.6 g/dL (31-35); MEAN CORPUSCULAR VOLUME 90.4 fL (81-99); MONOCYTES # (AUTO) 1.3 (0.2-0.8); MONOCYTES % 8.7 % (4.4-11.3); PLATELET COUNT 159 x10e3/uL (140-360); RED BLOOD COUNT 3.87 x10e6/uL (4.3-5.7); RED CELL DISTRIBUTION WIDTH 13.8 % (11.7-14.4)
[2021-10-15 07:08] LABS: CREATINE KINASE MB 0.9 ng/mL (0-5.0)
[2021-10-15 07:27] LABS: ALBUMIN 3.3 g/dL (3.5-5.0); ALBUMIN/GLOBULIN RATIO 0.9 (0.8-2.0); ANION GAP 16.3 mmol/L (8-16); CREATININE, SERUM 1.27 mg/dL (0.72-1.25); POTASSIUM 3.3 mmol/L (3.5-5.1)
[2021-10-15] MEDS ORDERED: AMIODARONE 900MG 500 ML IV SCH ×3 (07:30→15:30)
[2021-10-15] MEDS ORDERED: AMIODARONE HCL 150 MG/100 ML BAG IV ONE (07:30)
[2021-10-15] MEDS ORDERED: AMIODARONE HCL 100 ML IV ONE (07:35)
[2021-10-15] MEDS ORDERED: AMIODARONE 900MG 500 ML IV ONE (07:35)
[2021-10-15] MEDS: PANTOPRAZOLE SOD 40 MG TABEC PO SCH (08:20)
[2021-10-15] MEDS: TAMSULOSIN HCL 0.4 MG CAP PO SCH ×2 (08:20→16:59)
[2021-10-15] MEDS: FINASTERIDE 5 MG TAB PO SCH ×2 (08:20→08:23)
[2021-10-15] MEDS: METOPROLOL SUCCINATE 25 MG TAB XL PO SCH ×2 (08:20)
[2021-10-15] MEDS: GABAPENTIN 100 MG CAP PO SCH ×3 (08:20→21:11)
[2021-10-15] MEDS: FOLIC ACID/CYANOCOB/PYRIDOXINE TAB PO SCH (08:21)
[2021-10-15] MEDS: HYDRALAZINE HCL 25 MG TAB PO SCH ×3 (09:00→21:11)
[2021-10-15] MEDS: INSULIN LISPRO 100 UNIT/1 ML 3ML VIAL SQ SCH ×4 (09:07→20:47)
[2021-10-15] MEDS ORDERED: POTASSIUM CHLORIDE 20 MEQ TAB CR PO STA (10:27)
[2021-10-15] MEDS ORDERED: METOPROLOL TARTRATE INJ 1 MG/ML VIAL IV PRN (12:15)
[2021-10-15] MEDS ORDERED: LIPITOR20 MG PO (12:23)
[2021-10-15] MEDS ORDERED: ATORVASTATIN CA40 MG PO (12:24)
[2021-10-15] MEDS ORDERED: FENOFIBRATE134 MG PO (12:30)
[2021-10-15] MEDS ORDERED: ASPIRIN EC81 MG PO (12:30)
[2021-10-15] MEDS ORDERED: CEFDINIR300 MG PO (12:33)
[2021-10-15] MEDS ORDERED: AMLODIPINE BESYL5 MG PO (12:33)
[2021-10-15] MEDS ORDERED: METOPROLOL TART50 MG PO (13:20)
[2021-10-15] MEDS ORDERED: PLAVIX75 MG PO (13:21)
[2021-10-15] MEDS ORDERED: GLIMEPIRIDE4 MG PO (13:26)
[2021-10-15] MEDS ORDERED: FLUCONAZOLE100 MG PO (13:27)
[2021-10-15] MEDS ORDERED: AMITIZA24 MCG PO (13:28)
[2021-10-15] MEDS ORDERED: FUROSEMIDE20 MG PO (13:32)
[2021-10-15] MEDS ORDERED: OLMESARTAN MEDO40 MG PO (13:39)
[2021-10-15] MEDS ORDERED: SENNA LAXATIVE8.6 MG PO (13:47)
[2021-10-15] MEDS ORDERED: SENNA8.6 MG PO (13:48)
[2021-10-15] MEDS ORDERED: NEPHRO-VITE TABL1 EA PO (13:52)
[2021-10-15 14:26] LABS: CREATINE KINASE MB 0.7 ng/mL (0-5.0)
[2021-10-15] MEDS: FENOFIBRATE 160 MG TAB PO SCH (14:39)
[2021-10-15] MEDS ORDERED: METOPROLOL TARTRATE 50 MG TAB PO SCH (15:45)
[2021-10-15] MEDS: METOPROLOL TARTRATE 50 MG TAB PO SCH (16:59)
[2021-10-15 20:25] LABS: CREATINE KINASE MB 0.6 ng/mL (0-5.0)
[2021-10-15] MEDS: ATORVASTATIN 10 MG TAB PO SCH (21:11)
[2021-10-16] VITALS (21 sets, daily range): BP systolic 118–163; BP diastolic 44–81
[2021-10-16 05:42] LABS: BASOPHILS % 0.2 % (0.0-1.0); EOSINOPHILS % 0.1 % (0.0-6.0); HEMATOCRIT 32.9 % (38.2-49.6); HEMOGLOBIN 11.1 g/dL (14.0-18.0); LYMPHOCYTES # (AUTO) 0.7 (1.0-3.2); LYMPHOCYTES % 5.1 % (18.0-39.1); MEAN CORPUSCULAR HEMOGLOBIN 29.7 pg (28-32); MEAN CORPUSCULAR HGB CONC 33.7 g/dL (31-35); MONOCYTES # (AUTO) 1.2 (0.2-0.8); MONOCYTES % 8.7 % (4.4-11.3); NEUTROPHILS # (AUTO) 11.6 (2.1-6.9); NEUTROPHILS % 85.4 % (38.7-80.0); PLATELET COUNT 163 x10e3/uL (140-360); RED BLOOD COUNT 3.74 x10e6/uL (4.3-5.7); RED CELL DISTRIBUTION WIDTH 13.6 % (11.7-14.4)
[2021-10-16 05:59] LABS: ANION GAP 14.6 mmol/L (8-16); CALCIUM 8.6 mg/dL (8.4-10.2); POTASSIUM 3.6 mmol/L (3.5-5.1)
[2021-10-16] MEDS: METOPROLOL TARTRATE 50 MG TAB PO SCH ×2 (06:04→17:59)
[2021-10-16] MEDS: INSULIN LISPRO 100 UNIT/1 ML 3ML VIAL SQ SCH ×4 (07:30→21:00)
[2021-10-16] MEDS: TAMSULOSIN HCL 0.4 MG CAP PO SCH ×2 (08:31→16:05)
[2021-10-16] MEDS: HYDRALAZINE HCL 25 MG TAB PO SCH ×3 (08:31→20:51)
[2021-10-16] MEDS: GABAPENTIN 100 MG CAP PO SCH ×3 (08:31→20:52)
[2021-10-16] MEDS: FINASTERIDE 5 MG TAB PO SCH (08:31)
[2021-10-16] MEDS: PANTOPRAZOLE SOD 40 MG TABEC PO SCH (08:31)
[2021-10-16] MEDS: FOLIC ACID/CYANOCOB/PYRIDOXINE TAB PO SCH (08:31)
[2021-10-16] MEDS: FENOFIBRATE 160 MG TAB PO SCH (08:32)
[2021-10-16] MEDS: FLUCONAZOLE 100 MG TAB PO SCH (11:47)
[2021-10-16] MEDS: NYSTATIN/TRIAMCINOLONE 15 GM CR TOP SCH ×2 (11:47→16:07)
[2021-10-16] MEDS: LUBIPROSTONE 24 MCG CAP PO SCH (16:05)
[2021-10-16] MEDS: SENNOSIDES 8.6 MG TAB PO SCH (16:05)
[2021-10-16] MEDS: AMIODARONE HCL 200 MG TAB PO SCH (16:09)
[2021-10-16] MEDS ORDERED: AMIODARONE HCL 200 MG TAB PO ONE (18:45)
[2021-10-16] MEDS: ATORVASTATIN 10 MG TAB PO SCH (20:51)
[2021-10-16] MEDS: ATORVASTATIN 40 MG TAB PO SCH (22:30)
[2021-10-17] VITALS (7 sets, daily range): BP systolic 110–130; BP diastolic 63–72
[2021-10-17] MEDS: METOPROLOL TARTRATE 50 MG TAB PO SCH ×2 (05:03→18:18)
[2021-10-17 05:40] LABS: BASOPHILS % 0.2 % (0.0-1.0); EOSINOPHILS # (AUTO) 0.1 (0.0-0.4); HEMATOCRIT 33.2 % (38.2-49.6); HEMOGLOBIN 11.2 g/dL (14.0-18.0); LYMPHOCYTES # (AUTO) 0.8 (1.0-3.2); LYMPHOCYTES % 8.6 % (18.0-39.1); MEAN CORPUSCULAR HEMOGLOBIN 29.4 pg (28-32); MEAN CORPUSCULAR HGB CONC 33.7 g/dL (31-35); MEAN CORPUSCULAR VOLUME 87.1 fL (81-99); MONOCYTES # (AUTO) 0.9 (0.2-0.8); MONOCYTES % 9.2 % (4.4-11.3); NEUTROPHILS # (AUTO) 7.8 (2.1-6.9); NEUTROPHILS % 80.4 % (38.7-80.0); PLATELET COUNT 183 x10e3/uL (140-360); RED BLOOD COUNT 3.81 x10e6/uL (4.3-5.7); RED CELL DISTRIBUTION WIDTH 13.6 % (11.7-14.4)
[2021-10-17 06:01] LABS: ALBUMIN 2.6 g/dL (3.5-5.0); ALBUMIN/GLOBULIN RATIO 0.7 (0.8-2.0); ANION GAP 12.6 mmol/L (8-16); CALCIUM 8.8 mg/dL (8.4-10.2); CREATININE, SERUM 1.09 mg/dL (0.72-1.25); POTASSIUM 3.6 mmol/L (3.5-5.1)
[2021-10-17] MEDS: FINASTERIDE 5 MG TAB PO SCH (08:50)
[2021-10-17] MEDS: FOLIC ACID/CYANOCOB/PYRIDOXINE TAB PO SCH (08:50)
[2021-10-17] MEDS: HYDRALAZINE HCL 25 MG TAB PO SCH ×3 (08:50→20:37)
[2021-10-17] MEDS: GABAPENTIN 100 MG CAP PO SCH ×3 (08:50→20:36)
[2021-10-17] MEDS: FLUCONAZOLE 100 MG TAB PO SCH (08:50)
[2021-10-17] MEDS: TAMSULOSIN HCL 0.4 MG CAP PO SCH ×2 (08:51→17:27)
[2021-10-17] MEDS: CLOPIDOGREL BISULFATE 75 MG TAB PO SCH (08:51)
[2021-10-17] MEDS: LUBIPROSTONE 24 MCG CAP PO SCH ×2 (08:51→17:00)
[2021-10-17] MEDS: PANTOPRAZOLE SOD 40 MG TABEC PO SCH (08:51)
[2021-10-17] MEDS: AMIODARONE HCL 200 MG TAB PO SCH ×2 (08:51→17:28)
[2021-10-17] MEDS: INSULIN LISPRO 100 UNIT/1 ML 3ML VIAL SQ SCH ×4 (08:52→21:16)
[2021-10-17] MEDS: SENNOSIDES 8.6 MG TAB PO SCH ×2 (08:53→17:27)
[2021-10-17] MEDS: FENOFIBRATE 160 MG TAB PO SCH (08:59)
[2021-10-17] MEDS: NYSTATIN/TRIAMCINOLONE 15 GM CR TOP SCH ×2 (08:59→17:30)
[2021-10-17] MEDS ORDERED: FENOFIBRATE MICRONIZED PO SCH (09:00)
[2021-10-17] MEDS ORDERED: ONDANSETRON HCL 4 MG ORAL DISINTEGRATING TAB PO PRN (11:30)
[2021-10-17] MEDS: APIXABAN 5 MG TABLET PO SCH (17:29)
[2021-10-17] MEDS: ATORVASTATIN 40 MG TAB PO SCH (20:36)
[2021-10-17] MEDS ORDERED: SODIUM CHLORIDE 0.9% 250ML 250 ML ONE (20:54)
[2021-10-18] VITALS (8 sets, daily range): BP systolic 117–145; BP diastolic 60–77
[2021-10-18] MEDS: METOPROLOL TARTRATE 50 MG TAB PO SCH ×2 (06:33→16:55)
[2021-10-18] MEDS: INSULIN LISPRO 100 UNIT/1 ML 3ML VIAL SQ SCH ×4 (08:24→22:11)
[2021-10-18] MEDS: FENOFIBRATE 160 MG TAB PO SCH (09:00)
[2021-10-18] MEDS: TAMSULOSIN HCL 0.4 MG CAP PO SCH ×2 (09:51→16:54)
[2021-10-18] MEDS: FINASTERIDE 5 MG TAB PO SCH (09:52)
[2021-10-18] MEDS: APIXABAN 5 MG TABLET PO SCH ×2 (09:52→16:56)
[2021-10-18] MEDS: CLOPIDOGREL BISULFATE 75 MG TAB PO SCH (09:52)
[2021-10-18] MEDS: SENNOSIDES 8.6 MG TAB PO SCH ×2 (09:52→16:54)
[2021-10-18] MEDS: HYDRALAZINE HCL 25 MG TAB PO SCH ×3 (09:52→22:09)
[2021-10-18] MEDS: FLUCONAZOLE 100 MG TAB PO SCH (09:52)
[2021-10-18] MEDS: PANTOPRAZOLE SOD 40 MG TABEC PO SCH (09:52)
[2021-10-18] MEDS: GABAPENTIN 100 MG CAP PO SCH ×3 (09:53→22:06)
[2021-10-18] MEDS: LUBIPROSTONE 24 MCG CAP PO SCH ×2 (09:53→16:54)
[2021-10-18] MEDS: AMIODARONE HCL 200 MG TAB PO SCH ×2 (09:53→16:55)
[2021-10-18] MEDS: FOLIC ACID/CYANOCOB/PYRIDOXINE TAB PO SCH (09:53)
[2021-10-18] MEDS: NYSTATIN/TRIAMCINOLONE 15 GM CR TOP SCH ×2 (09:56→16:55)
[2021-10-18] MEDS: ATORVASTATIN 40 MG TAB PO SCH (22:06)
[2021-10-19] VITALS (8 sets, daily range): BP systolic 126–138; BP diastolic 58–75
[2021-10-19] MEDS: METOPROLOL TARTRATE 50 MG TAB PO SCH ×2 (06:05→18:08)
[2021-10-19 09:34] LABS: ANION GAP 15.5 mmol/L (8-16); CALCIUM 8.5 mg/dL (8.4-10.2); CREATININE, SERUM 0.97 mg/dL (0.72-1.25); MAGNESIUM 1.9 MG/DL (1.3-2.1); PHOSPHORUS 2.8 MG/DL (2.3-4.7); POTASSIUM 3.5 mmol/L (3.5-5.1)
[2021-10-19 09:42] LABS: BASOPHILS % 0.3 % (0.0-1.0); EOSINOPHILS # (AUTO) 0.2 (0.0-0.4); EOSINOPHILS % 1.9 % (0.0-6.0); HEMATOCRIT 34.5 % (38.2-49.6); HEMOGLOBIN 11.5 g/dL (14.0-18.0); LYMPHOCYTES # (AUTO) 0.9 (1.0-3.2); LYMPHOCYTES % 8.8 % (18.0-39.1); MEAN CORPUSCULAR HEMOGLOBIN 29.1 pg (28-32); MEAN CORPUSCULAR HGB CONC 33.3 g/dL (31-35); MEAN CORPUSCULAR VOLUME 87.3 fL (81-99); MONOCYTES # (AUTO) 0.6 (0.2-0.8); MONOCYTES % 5.9 % (4.4-11.3); NEUTROPHILS % 82.7 % (38.7-80.0); PLATELET COUNT 239 x10e3/uL (140-360); RED BLOOD COUNT 3.95 x10e6/uL (4.3-5.7); RED CELL DISTRIBUTION WIDTH 13.7 % (11.7-14.4)
[2021-10-19] MEDS: FLUCONAZOLE 100 MG TAB PO SCH (10:25)
[2021-10-19] MEDS: APIXABAN 5 MG TABLET PO SCH ×2 (10:25→18:09)
[2021-10-19] MEDS: LUBIPROSTONE 24 MCG CAP PO SCH ×2 (10:26→18:08)
[2021-10-19] MEDS: HYDRALAZINE HCL 25 MG TAB PO SCH ×3 (10:26→21:30)
[2021-10-19] MEDS: FOLIC ACID/CYANOCOB/PYRIDOXINE TAB PO SCH (10:26)
[2021-10-19] MEDS: GABAPENTIN 100 MG CAP PO SCH ×3 (10:27→21:30)
[2021-10-19] MEDS: TAMSULOSIN HCL 0.4 MG CAP PO SCH ×2 (10:27→18:09)
[2021-10-19] MEDS: CLOPIDOGREL BISULFATE 75 MG TAB PO SCH (10:27)
[2021-10-19] MEDS: SENNOSIDES 8.6 MG TAB PO SCH ×2 (10:28→17:00)
[2021-10-19] MEDS: NYSTATIN/TRIAMCINOLONE 15 GM CR TOP SCH ×2 (10:28→18:09)
[2021-10-19] MEDS: FINASTERIDE 5 MG TAB PO SCH (10:28)
[2021-10-19] MEDS: AMIODARONE HCL 200 MG TAB PO SCH ×2 (10:28→18:13)
[2021-10-19] MEDS: FENOFIBRATE 160 MG TAB PO SCH (10:29)
[2021-10-19] MEDS: PANTOPRAZOLE SOD 40 MG TABEC PO SCH (10:31)
[2021-10-19] MEDS: INSULIN LISPRO 100 UNIT/1 ML 3ML VIAL SQ SCH ×4 (10:35→21:31)
[2021-10-19] MEDS: ATORVASTATIN 40 MG TAB PO SCH (21:30)
[2021-10-20 05:50] VITALS: BP 129/78
[2021-10-20] MEDS: METOPROLOL TARTRATE 50 MG TAB PO SCH ×2 (05:53→17:07)
[2021-10-20 08:18] VITALS: BP 131/67
[2021-10-20] MEDS: FLUCONAZOLE 100 MG TAB PO SCH (08:39)
[2021-10-20] MEDS: GABAPENTIN 100 MG CAP PO SCH ×3 (08:39→21:43)
[2021-10-20] MEDS: PANTOPRAZOLE SOD 40 MG TABEC PO SCH (08:39)
[2021-10-20] MEDS: FINASTERIDE 5 MG TAB PO SCH (08:39)
[2021-10-20] MEDS: LUBIPROSTONE 24 MCG CAP PO SCH ×2 (08:40→17:07)
[2021-10-20] MEDS: CLOPIDOGREL BISULFATE 75 MG TAB PO SCH (08:40)
[2021-10-20] MEDS: SENNOSIDES 8.6 MG TAB PO SCH ×2 (08:40→17:08)
[2021-10-20] MEDS: AMIODARONE HCL 200 MG TAB PO SCH ×2 (08:40→17:08)
[2021-10-20] MEDS: APIXABAN 5 MG TABLET PO SCH ×2 (08:41→17:08)
[2021-10-20] MEDS: FOLIC ACID/CYANOCOB/PYRIDOXINE TAB PO SCH (08:41)
[2021-10-20] MEDS: HYDRALAZINE HCL 25 MG TAB PO SCH ×3 (08:41→21:43)
[2021-10-20] MEDS: TAMSULOSIN HCL 0.4 MG CAP PO SCH ×2 (08:43→17:08)
[2021-10-20] MEDS: NYSTATIN/TRIAMCINOLONE 15 GM CR TOP SCH ×2 (08:43→17:08)
[2021-10-20] MEDS: FENOFIBRATE 160 MG TAB PO SCH (08:43)
[2021-10-20 08:51] VITALS: BP 131/67
[2021-10-20] MEDS: INSULIN LISPRO 100 UNIT/1 ML 3ML VIAL SQ SCH ×4 (08:55→21:37)
[2021-10-20] MEDS: CIPROFLOXACIN 500 MG TAB PO SCH ×2 (11:41→17:07)
[2021-10-20 11:55] VITALS: BP 107/49
[2021-10-20 16:29] VITALS: BP 150/67
[2021-10-20 21:19] VITALS: BP 144/74
[2021-10-20] MEDS: ATORVASTATIN 40 MG TAB PO SCH (21:43)
[2021-10-21] VITALS (8 sets, daily range): BP systolic 95–150; BP diastolic 55–83
[2021-10-21] MEDS: METOPROLOL TARTRATE 50 MG TAB PO SCH ×2 (05:36→18:15)
[2021-10-21] MEDS: CIPROFLOXACIN 500 MG TAB PO SCH ×2 (09:43→18:14)
[2021-10-21] MEDS: LUBIPROSTONE 24 MCG CAP PO SCH ×2 (09:43→18:14)
[2021-10-21] MEDS: FLUCONAZOLE 100 MG TAB PO SCH (09:43)
[2021-10-21] MEDS: FINASTERIDE 5 MG TAB PO SCH (09:44)
[2021-10-21] MEDS: GABAPENTIN 100 MG CAP PO SCH ×3 (09:44→22:04)
[2021-10-21] MEDS: HYDRALAZINE HCL 25 MG TAB PO SCH ×3 (09:44→21:00)
[2021-10-21] MEDS: FOLIC ACID/CYANOCOB/PYRIDOXINE TAB PO SCH (09:45)
[2021-10-21] MEDS: SENNOSIDES 8.6 MG TAB PO SCH ×2 (09:45→18:15)
[2021-10-21] MEDS: CLOPIDOGREL BISULFATE 75 MG TAB PO SCH (09:45)
[2021-10-21] MEDS: PANTOPRAZOLE SOD 40 MG TABEC PO SCH (09:45)
[2021-10-21] MEDS: AMIODARONE HCL 200 MG TAB PO SCH ×2 (09:45→18:15)
[2021-10-21] MEDS: TAMSULOSIN HCL 0.4 MG CAP PO SCH ×2 (09:45→18:15)
[2021-10-21] MEDS: APIXABAN 5 MG TABLET PO SCH ×2 (09:45→18:14)
[2021-10-21] MEDS: FENOFIBRATE 160 MG TAB PO SCH (09:46)
[2021-10-21] MEDS: NYSTATIN/TRIAMCINOLONE 15 GM CR TOP SCH ×2 (09:46→18:15)
[2021-10-21] MEDS: INSULIN LISPRO 100 UNIT/1 ML 3ML VIAL SQ SCH ×4 (12:18→22:14)
[2021-10-21] MEDS: ATORVASTATIN 40 MG TAB PO SCH (22:04)
[2021-10-22] VITALS (9 sets, daily range): BP systolic 95–157; BP diastolic 48–81
[2021-10-22 05:00] LABS: BASOPHILS # (AUTO) 0.1 (0.0-0.1); BASOPHILS % 0.7 % (0.0-1.0); EOSINOPHILS # (AUTO) 0.2 (0.0-0.4); EOSINOPHILS % 2.6 % (0.0-6.0); HEMATOCRIT 31.9 % (38.2-49.6); HEMOGLOBIN 10.7 g/dL (14.0-18.0); LYMPHOCYTES # (AUTO) 1.1 (1.0-3.2); LYMPHOCYTES % 12.7 % (18.0-39.1); MEAN CORPUSCULAR HEMOGLOBIN 29.5 pg (28-32); MEAN CORPUSCULAR HGB CONC 33.5 g/dL (31-35); MEAN CORPUSCULAR VOLUME 87.9 fL (81-99); MONOCYTES # (AUTO) 0.6 (0.2-0.8); MONOCYTES % 7.3 % (4.4-11.3); NEUTROPHILS # (AUTO) 6.6 (2.1-6.9); NEUTROPHILS % 75.2 % (38.7-80.0); PLATELET COUNT 331 x10e3/uL (140-360); RED BLOOD COUNT 3.63 x10e6/uL (4.3-5.7); RED CELL DISTRIBUTION WIDTH 13.9 % (11.7-14.4)
[2021-10-22 05:24] LABS: ANION GAP 14.5 mmol/L (8-16); CALCIUM 8.5 mg/dL (8.4-10.2); CREATININE, SERUM 0.91 mg/dL (0.72-1.25); POTASSIUM 3.5 mmol/L (3.5-5.1)
[2021-10-22] MEDS: METOPROLOL TARTRATE 50 MG TAB PO SCH ×2 (05:36→17:15)
[2021-10-22] MEDS: INSULIN LISPRO 100 UNIT/1 ML 3ML VIAL SQ SCH ×4 (08:30→21:40)
[2021-10-22] MEDS: LUBIPROSTONE 24 MCG CAP PO SCH ×2 (09:47→16:53)
[2021-10-22] MEDS: FENOFIBRATE 160 MG TAB PO SCH (09:47)
[2021-10-22] MEDS: CIPROFLOXACIN 500 MG TAB PO SCH ×2 (09:49→16:53)
[2021-10-22] MEDS: HYDRALAZINE HCL 25 MG TAB PO SCH ×3 (09:49→21:40)
[2021-10-22] MEDS: AMIODARONE HCL 200 MG TAB PO SCH ×2 (09:50→16:53)
[2021-10-22] MEDS: TAMSULOSIN HCL 0.4 MG CAP PO SCH ×2 (09:51→16:53)
[2021-10-22] MEDS: FOLIC ACID/CYANOCOB/PYRIDOXINE TAB PO SCH (09:51)
[2021-10-22] MEDS: APIXABAN 5 MG TABLET PO SCH ×2 (09:51→16:53)
[2021-10-22] MEDS: FLUCONAZOLE 100 MG TAB PO SCH (09:51)
[2021-10-22] MEDS: PANTOPRAZOLE SOD 40 MG TABEC PO SCH (09:52)
[2021-10-22] MEDS: CLOPIDOGREL BISULFATE 75 MG TAB PO SCH (09:52)
[2021-10-22] MEDS: FINASTERIDE 5 MG TAB PO SCH (09:52)
[2021-10-22] MEDS: GABAPENTIN 100 MG CAP PO SCH ×3 (09:52→21:40)
[2021-10-22] MEDS: SENNOSIDES 8.6 MG TAB PO SCH ×2 (09:53→16:45)
[2021-10-22] MEDS: NYSTATIN/TRIAMCINOLONE 15 GM CR TOP SCH ×2 (09:57→16:53)
[2021-10-22] MEDS: ATORVASTATIN 40 MG TAB PO SCH (21:40)
[2021-10-23] VITALS (8 sets, daily range): BP systolic 127–163; BP diastolic 47–80
[2021-10-23] MEDS: METOPROLOL TARTRATE 50 MG TAB PO SCH ×2 (06:49→17:27)
[2021-10-23] MEDS: INSULIN LISPRO 100 UNIT/1 ML 3ML VIAL SQ SCH ×4 (08:30→21:07)
[2021-10-23] MEDS: SENNOSIDES 8.6 MG TAB PO SCH ×2 (09:00→17:00)
[2021-10-23] MEDS: LUBIPROSTONE 24 MCG CAP PO SCH ×2 (09:18→17:28)
[2021-10-23] MEDS: FENOFIBRATE 160 MG TAB PO SCH (09:19)
[2021-10-23] MEDS: FLUCONAZOLE 100 MG TAB PO SCH (09:19)
[2021-10-23] MEDS: CIPROFLOXACIN 500 MG TAB PO SCH ×2 (09:19→17:28)
[2021-10-23] MEDS: HYDRALAZINE HCL 25 MG TAB PO SCH ×3 (09:19→20:36)
[2021-10-23] MEDS: AMIODARONE HCL 200 MG TAB PO SCH ×2 (09:20→17:28)
[2021-10-23] MEDS: GABAPENTIN 100 MG CAP PO SCH ×3 (09:21→20:36)
[2021-10-23] MEDS: FOLIC ACID/CYANOCOB/PYRIDOXINE TAB PO SCH (09:21)
[2021-10-23] MEDS: TAMSULOSIN HCL 0.4 MG CAP PO SCH ×2 (09:21→17:27)
[2021-10-23] MEDS: PANTOPRAZOLE SOD 40 MG TABEC PO SCH (09:22)
[2021-10-23] MEDS: CLOPIDOGREL BISULFATE 75 MG TAB PO SCH (09:22)
[2021-10-23] MEDS: FINASTERIDE 5 MG TAB PO SCH (09:22)
[2021-10-23] MEDS: NYSTATIN/TRIAMCINOLONE 15 GM CR TOP SCH ×2 (09:23→17:00)
[2021-10-23] MEDS: APIXABAN 5 MG TABLET PO SCH (09:25)
[2021-10-23] MEDS ORDERED: APIXABAN 5 MG TABLET PO SCH (17:00)
[2021-10-23] MEDS: ATORVASTATIN 40 MG TAB PO SCH (20:36)
[2021-10-24] VITALS (9 sets, daily range): BP systolic 119–161; BP diastolic 50–62
[2021-10-24] MEDS: METOPROLOL TARTRATE 50 MG TAB PO SCH ×2 (05:02→16:28)
[2021-10-24 05:41] LABS: BASOPHILS % 0.3 % (0.0-1.0); EOSINOPHILS # (AUTO) 0.1 (0.0-0.4); EOSINOPHILS % 0.9 % (0.0-6.0); HEMATOCRIT 30.8 % (38.2-49.6); HEMOGLOBIN 9.8 g/dL (14.0-18.0); LYMPHOCYTES # (AUTO) 1.1 (1.0-3.2); MEAN CORPUSCULAR HEMOGLOBIN 28.8 pg (28-32); MEAN CORPUSCULAR HGB CONC 31.8 g/dL (31-35); MEAN CORPUSCULAR VOLUME 90.6 fL (81-99); MONOCYTES # (AUTO) 1.1 (0.2-0.8); MONOCYTES % 9.1 % (4.4-11.3); NEUTROPHILS # (AUTO) 9.3 (2.1-6.9); NEUTROPHILS % 79.6 % (38.7-80.0); PLATELET COUNT 315 x10e3/uL (140-360); RED CELL DISTRIBUTION WIDTH 14.1 % (11.7-14.4)
[2021-10-24 06:05] LABS: ANION GAP 13.5 mmol/L (8-16); CALCIUM 8.6 mg/dL (8.4-10.2); CREATININE, SERUM 0.96 mg/dL (0.72-1.25); POTASSIUM 3.5 mmol/L (3.5-5.1)
[2021-10-24] MEDS: INSULIN LISPRO 100 UNIT/1 ML 3ML VIAL SQ SCH ×4 (07:30→20:41)
[2021-10-24] MEDS ORDERED: SODIUM CHLORIDE 0.9% 1000ML 1,000 ML IV SCH (09:00)
[2021-10-24] MEDS: SENNOSIDES 8.6 MG TAB PO SCH ×2 (09:52→16:28)
[2021-10-24] MEDS: TAMSULOSIN HCL 0.4 MG CAP PO SCH ×2 (09:52→16:28)
[2021-10-24] MEDS: LUBIPROSTONE 24 MCG CAP PO SCH ×2 (09:52→16:27)
[2021-10-24] MEDS: PANTOPRAZOLE SOD 40 MG TABEC PO SCH (09:53)
[2021-10-24] MEDS: FOLIC ACID/CYANOCOB/PYRIDOXINE TAB PO SCH (09:53)
[2021-10-24] MEDS: AMIODARONE HCL 200 MG TAB PO SCH ×2 (09:53→16:27)
[2021-10-24] MEDS: GABAPENTIN 100 MG CAP PO SCH ×3 (09:53→20:36)
[2021-10-24] MEDS: FINASTERIDE 5 MG TAB PO SCH (09:53)
[2021-10-24] MEDS: CIPROFLOXACIN 500 MG TAB PO SCH ×2 (09:54→16:27)
[2021-10-24] MEDS: FENOFIBRATE 160 MG TAB PO SCH (09:57)
[2021-10-24] MEDS: HYDRALAZINE HCL 25 MG TAB PO SCH ×3 (09:58→20:36)
[2021-10-24] MEDS: NYSTATIN/TRIAMCINOLONE 15 GM CR TOP SCH ×2 (13:36→16:28)
[2021-10-24] MEDS: ATORVASTATIN 40 MG TAB PO SCH (20:36)
[2021-10-25] VITALS (8 sets, daily range): BP systolic 129–153; BP diastolic 50–61
[2021-10-25 05:43] LABS: BASOPHILS % 0.4 % (0.0-1.0); EOSINOPHILS # (AUTO) 0.1 (0.0-0.4); EOSINOPHILS % 1.2 % (0.0-6.0); HEMATOCRIT 27.5 % (38.2-49.6); HEMOGLOBIN 9.3 g/dL (14.0-18.0); LYMPHOCYTES # (AUTO) 0.9 (1.0-3.2); LYMPHOCYTES % 9.3 % (18.0-39.1); MEAN CORPUSCULAR HEMOGLOBIN 28.7 pg (28-32); MEAN CORPUSCULAR HGB CONC 33.8 g/dL (31-35); MEAN CORPUSCULAR VOLUME 84.9 fL (81-99); MONOCYTES # (AUTO) 0.8 (0.2-0.8); MONOCYTES % 8.8 % (4.4-11.3); NEUTROPHILS # (AUTO) 7.4 (2.1-6.9); NEUTROPHILS % 79.1 % (38.7-80.0); PLATELET COUNT 319 x10e3/uL (140-360); RED BLOOD COUNT 3.24 x10e6/uL (4.3-5.7); RED CELL DISTRIBUTION WIDTH 14.1 % (11.7-14.4)
[2021-10-25] MEDS: METOPROLOL TARTRATE 50 MG TAB PO SCH ×2 (06:10→18:41)
[2021-10-25 06:26] LABS: ANION GAP 11.2 mmol/L (8-16); CALCIUM 8.2 mg/dL (8.4-10.2); CREATININE, SERUM 0.9 mg/dL (0.72-1.25); POTASSIUM 3.2 mmol/L (3.5-5.1)
[2021-10-25] MEDS: INSULIN LISPRO 100 UNIT/1 ML 3ML VIAL SQ SCH ×4 (09:19→21:27)
[2021-10-25] MEDS: HYDRALAZINE HCL 25 MG TAB PO SCH ×3 (09:27→21:23)
[2021-10-25] MEDS: PANTOPRAZOLE SOD 40 MG TABEC PO SCH (09:27)
[2021-10-25] MEDS: GABAPENTIN 100 MG CAP PO SCH ×3 (09:28→21:23)
[2021-10-25] MEDS: FINASTERIDE 5 MG TAB PO SCH (09:28)
[2021-10-25] MEDS: AMIODARONE HCL 200 MG TAB PO SCH ×2 (09:28→16:48)
[2021-10-25] MEDS: FOLIC ACID/CYANOCOB/PYRIDOXINE TAB PO SCH (09:28)
[2021-10-25] MEDS: TAMSULOSIN HCL 0.4 MG CAP PO SCH ×2 (09:28→16:49)
[2021-10-25] MEDS: SENNOSIDES 8.6 MG TAB PO SCH ×2 (09:28→16:49)
[2021-10-25] MEDS: CIPROFLOXACIN 500 MG TAB PO SCH ×2 (09:29→16:49)
[2021-10-25] MEDS: NYSTATIN/TRIAMCINOLONE 15 GM CR TOP SCH ×2 (09:29→16:49)
[2021-10-25] MEDS: FENOFIBRATE 160 MG TAB PO SCH (09:29)
[2021-10-25] MEDS: LUBIPROSTONE 24 MCG CAP PO SCH ×2 (09:32→16:48)
[2021-10-25] MEDS ORDERED: POTASSIUM CHLORIDE 10MEQ EA PO ONE (10:00)
[2021-10-25] MEDS: ATORVASTATIN 40 MG TAB PO SCH (21:23)
[2021-10-26] VITALS: BP 119/52
[2021-10-26 04:00] VITALS: BP 127/43
[2021-10-26] MEDS: METOPROLOL TARTRATE 50 MG TAB PO SCH (06:25)
[2021-10-26 08:12] VITALS: BP 124/53
[2021-10-26 08:26] VITALS: BP 124/53
[2021-10-26] MEDS: INSULIN LISPRO 100 UNIT/1 ML 3ML VIAL SQ SCH (08:50)
[2021-10-26] MEDS: SENNOSIDES 8.6 MG TAB PO SCH (09:00)
[2021-10-26] MEDS: NYSTATIN/TRIAMCINOLONE 15 GM CR TOP SCH (09:00)
[2021-10-26] MEDS: LUBIPROSTONE 24 MCG CAP PO SCH (09:00)
[2021-10-26] MEDS: CIPROFLOXACIN 500 MG TAB PO SCH (09:07)
[2021-10-26] MEDS: HYDRALAZINE HCL 25 MG TAB PO SCH (09:08)
[2021-10-26] MEDS: FENOFIBRATE 160 MG TAB PO SCH (09:08)
[2021-10-26] MEDS: PANTOPRAZOLE SOD 40 MG TABEC PO SCH (09:08)
[2021-10-26] MEDS: FOLIC ACID/CYANOCOB/PYRIDOXINE TAB PO SCH (09:08)
[2021-10-26] MEDS: FINASTERIDE 5 MG TAB PO SCH (09:08)
[2021-10-26] MEDS: GABAPENTIN 100 MG CAP PO SCH (09:09)
[2021-10-26] MEDS: AMIODARONE HCL 200 MG TAB PO SCH (09:09)
[2021-10-26] MEDS: TAMSULOSIN HCL 0.4 MG CAP PO SCH (09:09)
== END 2021-10-26 10:51 | disposition home health service (06) | DRG 698 ==
LOC: ER 19:20 → ERHOLD 21:59 → ICU 10-15 07:50 → MED/SURG3 10-16 17:09
PROVIDERS: ADMIT Internal Medicine; ATTEND Internal Medicine
DX: T83.592A Infection and inflammatory reaction due to indwelling ureteral stent, initial encounter (principal); A41.52 Sepsis due to Pseudomonas; R65.20 Severe sepsis without septic shock; D68.9 Coagulation defect, unspecified; N39.0 Urinary tract infection, site not specified; E87.1 Hypo-osmolality and hyponatremia; N13.30 Unspecified hydronephrosis; N13.8 Other obstructive and reflux uropathy; I48.21 Permanent atrial fibrillation; C61 Malignant neoplasm of prostate; N32.81 Overactive bladder; N39.41 Urge incontinence; N41.9 Inflammatory disease of prostate, unspecified; I25.10 Atherosclerotic heart disease of native coronary artery without angina pectoris; R62.7 Adult failure to thrive; Z68.24 Body mass index [BMI] 24.0-24.9, adult; N40.1 Benign prostatic hyperplasia with lower urinary tract symptoms; Z95.1 Presence of aortocoronary bypass graft; Z86.73 Personal history of transient ischemic attack (TIA), and cerebral infarction without residual deficits; E11.69 Type 2 diabetes mellitus with other specified complication; E11.40 Type 2 diabetes mellitus with diabetic neuropathy, unspecified; Z75.1 Person awaiting admission to adequate facility elsewhere; I45.10 Unspecified right bundle-branch block; E83.41 Hypermagnesemia; R21 Rash and other nonspecific skin eruption; D63.8 Anemia in other chronic diseases classified elsewhere; Z79.890 Hormone replacement therapy; Z79.01 Long term (current) use of anticoagulants; Z93.6 Other artificial openings of urinary tract status; E11.22 Type 2 diabetes mellitus with diabetic chronic kidney disease; I12.9 Hypertensive chronic kidney disease with stage 1 through stage 4 chronic kidney disease, or unspecified chronic kidney disease; N18.9 Chronic kidney disease, unspecified; Z20.822 Contact with and (suspected) exposure to COVID-19
CPT/HCPCS: 36415; 71045; 80048; 80053; 81001; 82550; 82553; 82948; 83605; 83735; 84100; 84484; 85025; 85610; 85730; 87040; 87086; 87186; 93005; 96365; 96372; 99251; 99285; J0696; J3475; J7030; J7050

== ENCOUNTER → 2021-11-09 | Outpatient (CLI) | payer SELFPAY ==
[~2021-11-09] MED LIST changes: +AMITIZA24 MCG PO; +AMLODIPINE BESYL5 MG PO; +ASPIRIN EC81 MG PO; +ATORVASTATIN CA40 MG PO; +CEFDINIR300 MG PO; +FENOFIBRATE134 MG PO; +FLUCONAZOLE100 MG PO; +FUROSEMIDE20 MG PO; +GLIMEPIRIDE4 MG PO; +IOPAMIDOL 370 MG/ML 100 ML INFUS..BTL INJ ONE; +LIPITOR20 MG PO; +METOPROLOL TART50 MG PO; +NEPHRO-VITE TABL1 EA PO; +OLMESARTAN MEDO40 MG PO; +SENNA LAXATIVE8.6 MG PO; +SENNA8.6 MG PO
[2021-11-09 14:50] LABS: CREATININE, SERUM 1.09 mg/dL (0.72-1.25)
== END ==
LOC: CT 13:35
PROVIDERS: ATTEND Internal Medicine Interventional Cardiology
DX: R07.9 Chest pain, unspecified (principal); I48.91 Unspecified atrial fibrillation; I28.8 Other diseases of pulmonary vessels; I25.10 Atherosclerotic heart disease of native coronary artery without angina pectoris
CPT/HCPCS: 36415; 71275; 82565; 84520; Q9967

== ENCOUNTER 2021-11-15 17:18 | Emergency (ER) | payer MEDICARE ==
[~2021-11-15] VITALS: Ht 185.4 cm; Wt 83.0 kg
[~2021-11-15 17:18] MED LIST changes: -IOPAMIDOL 370 MG/ML 100 ML INFUS..BTL INJ ONE
[2021-11-15 17:55] LABS: CLARITY,URINE HAZY (CLEAR); COLOR,URINE STRAW (YELLOW); KETONES,URINE NEGATIVE (NEGATIVE); LEUKOCYTE ESTERASE ,URINE MODERATE (NEGATIVE); NITRITE,URINE NEGATIVE (NEGATIVE); PROTEIN,URINE DIPSTICK 1+ (NEGATIVE); URINE UROBILINOGEN 0.2 mg/dL (0.2 - 1)
[2021-11-15 18:10] LABS: BACTERIA,URINE FEW /HPF
[2021-11-15 18:39] VITALS: BP 126/72
== END 2021-11-15 18:15 | disposition home or self-care (01) ==
LOC: ER 17:27
DX: R10.30 Lower abdominal pain, unspecified (principal); Z85.46 Personal history of malignant neoplasm of prostate; R33.9 Retention of urine, unspecified; Z86.73 Personal history of transient ischemic attack (TIA), and cerebral infarction without residual deficits; Z95.1 Presence of aortocoronary bypass graft
CPT/HCPCS: 51700; 81001; 87086; 99284